=== PATIENT | male | born 1990 | race African-American/Black ===

== ENCOUNTER 2017-05-07 14:54 | Emergency (ER) | payer OTHER ==
[2017-05-07] MEDS: KETOROLAC 60 MG/2 ML VIAL (J1885) IM (16:21)
== END 2017-05-07 16:40 | disposition home or self-care (01) ==
LOC: M ED 14:54
DX: S19.80XA Other specified injuries of unspecified part of neck, initial encounter (principal); T14.91XA Suicide attempt, initial encounter; Y92.149 Unspecified place in prison as the place of occurrence of the external cause; Y93.9 Activity, unspecified; R01.1 Cardiac murmur, unspecified; F17.200 Nicotine dependence, unspecified, uncomplicated
CPT/HCPCS: J1885